=== PATIENT | female | born 1995 | race Caucasian/White ===

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

== ENCOUNTER 2017-03-13 13:29 | Emergency (ER) | payer MEDICAID ==
[~2017-03-13] VITALS: Ht 157.5 cm; Wt 58.0 kg
[2017-03-13 13:44] VITALS: BP 104/54
== END 2017-03-13 15:15 | disposition home or self-care (01) ==
LOC: ER 13:33
DX: H10.9 Unspecified conjunctivitis (principal); Z88.0 Allergy status to penicillin; Z98.890 Other specified postprocedural states
CPT/HCPCS: 99283

== ENCOUNTER 2017-03-21 21:45 | Emergency (ER) | payer SELFPAY ==
[~2017-03-21] VITALS: Ht 157.5 cm; Wt 60.0 kg
[2017-03-21 22:39] VITALS: BP 105/66
[2017-03-21] MEDS ORDERED: TETRACAINE 0.5% OPHTH DROPS 4ML OP ONE (23:15)
[2017-03-21] MEDS ORDERED: BALANCED SALT IRRIG SOLN 15ML IO ONE (23:15)
[2017-03-21] MEDS ORDERED: FLUORESCEIN SODIUM 1MG/STRIP OP ONE (23:15)
[2017-03-22 00:02] LABS: HCG SCREEN POSITIVE
[2017-03-22] MEDS ORDERED: GENTAMICIN 0.3% OPHTH DROPS 5ML OP ONE (00:15)
== END 2017-03-22 00:44 | disposition home or self-care (01) ==
LOC: ER 22:38
DX: H10.89 Other conjunctivitis (principal); Z88.0 Allergy status to penicillin
CPT/HCPCS: 84703; 99284

== ENCOUNTER 2017-04-05 14:02 | Observation (INO) | payer SELFPAY ==
[~2017-04-05] VITALS: Ht 157.5 cm; Wt 59.9 kg
== END 2017-04-05 18:27 | disposition home or self-care (01) ==
LOC: L&D 14:02
PROVIDERS: ADMIT Obstetrics & Gynecology; ATTEND Obstetrics & Gynecology
DX: O26.893 Other specified pregnancy related conditions, third trimester (principal); R10.30 Lower abdominal pain, unspecified; Z3A.37 37 weeks gestation of pregnancy
CPT/HCPCS: 99281; G0378

== ENCOUNTER 2017-04-16 18:38 | Observation (INO) | payer SELFPAY ==
[~2017-04-16] VITALS: Ht 157.5 cm; Wt 60.8 kg
[2017-04-16] MEDS: LACTATED RINGERS 1,000 ML IV SCH ×2 (19:38→20:39)
== END 2017-04-16 22:15 | disposition home or self-care (01) ==
LOC: L&D 18:38
PROVIDERS: ADMIT Obstetrics & Gynecology; ATTEND Obstetrics & Gynecology
DX: O62.9 Abnormality of forces of labor, unspecified (principal); Z3A.39 39 weeks gestation of pregnancy
CPT/HCPCS: 96360; 96361; 99281; G0378; J7120

== ENCOUNTER 2017-04-17 11:52 | Observation (INO) | payer MEDICAID ==
[~2017-04-17] VITALS: Ht 157.5 cm; Wt 59.9 kg
== END 2017-04-17 13:00 | disposition home or self-care (01) ==
LOC: L&D 11:52
PROVIDERS: ADMIT Obstetrics & Gynecology; ATTEND Obstetrics & Gynecology
DX: O62.9 Abnormality of forces of labor, unspecified (principal); Z3A.39 39 weeks gestation of pregnancy
CPT/HCPCS: 99281; G0378

== ENCOUNTER 2017-04-17 22:07 | Inpatient (IN) | payer MEDICAID ==
[~2017-04-17] VITALS: Ht 157.5 cm; Wt 60.8 kg
[2017-04-17] MEDS ORDERED: DEXT 5%/LR + PITOCIN 20UNITS/L 1,000 ML IV SCH (22:51)
[2017-04-17] MEDS ORDERED: METHYLERGONOVINE MALEATE 0.2 MG/ML IM PRN (23:00)
[2017-04-17] MEDS ORDERED: NALOXONE HCL 0.4 MG/ML 1ML VIAL IM PRN (23:00)
[2017-04-17] MEDS ORDERED: BUTORPHANOL TARTRATE 2 MG/ML VIAL IV PRN (23:00)
[2017-04-17] MEDS ORDERED: MISOPROSTOL 100MCG TABLET VG SCH (23:00)
[2017-04-17] MEDS ORDERED: LIDOCAINE HCL 1% 20ML VIAL (Pyxis) INJ INFIL SCH (23:00)
[2017-04-17] MEDS ORDERED: CARBOPROST TROMETHAMINE 250 MCG/ML AMPUL IM PRN (23:00)
[2017-04-17] MEDS: LACTATED RINGERS 1,000 ML IV SCH (23:21)
[2017-04-17 23:44] LABS: CLARITY URINE CLEAR (CLEAR); COLOR URINE YELLOW (YELLOW); KETONES URINE 1+ (NEGATIVE); LEUKOCYTE ESTERASE URINE 2+ (NEGATIVE); NITRITE URINE NEGATIVE (NEGATIVE); OCCULT BLOOD URINE TRACE (NEGATIVE); PROTEIN URINE NEGATIVE (NEGATIVE); SPECIFIC GRAVITY URINE 1.009 (1.005-1.030); UROBILINOGEN URINE 0.2 E.U./dL (0.2-1.0)
[2017-04-17] MEDS: CLINDAMYCIN 900 MG in DEXTROSE 5% WATER 50 ML IV SCH (23:44)
[2017-04-17 23:53] LABS: BASOPHILS % 0.2 % (0.0-2.0); EOSINOPHILS % 0.1 % (0.0-5.0); HEMOGLOBIN. 11.9 g/dL (12.0-16.0); LYMPHOCYTES % 11.5 % (20.0-50.0); MEAN CORPUSCULAR HEMOGLOBIN 31.4 pg (28.0-32.0); MEAN CORPUSCULAR VOLUME 92.7 fL (81.0-99.0); MEAN PLATELET VOLUME 8.9 fl (7.4-10.4); MONOCYTES % 5.9 % (2.0-8.0); NEUTROPHILS % 82.3 % (40.0-76.0); PLATELET 177 x1000/uL (130-400); RED BLOOD CELL COUNT 3.78 mill/uL (4.2-5.4); RED CELL DISTRIBUTION WIDTH 13.1 % (11.6-14.6)
[2017-04-17 23:59] LABS: INR 0.9; PARTIAL THROMBOPLASTIN TIME 25.1 sec (23.4-31.0); PROTHROMBIN TIME 9.8 sec (9.4-11.6)
[2017-04-18 00:01] LABS: *AMPHETAMINES SCREEN URINE NEGATIVE (NEGATIVE); *BARBITURATES SCREEN URINE NEGATIVE (NEGATIVE); *BENZODIAZEPINES SCREEN URINE NEGATIVE (NEGATIVE); *COCAINE SCREEN URINE NEGATIVE (NEGATIVE); CANNABINOID URINE SCREEN NEGATIVE (NEGATIVE); METHADONE URINE SCREEN NEGATIVE (NEGATIVE); OPIATES URINE SCREEN NEGATIVE (NEGATIVE); PHENCYCLIDINE URINE SCREEN NEGATIVE (NEGATIVE)
[2017-04-18] MEDS: LACTATED RINGERS 1,000 ML IV SCH (00:48)
[2017-04-18] MEDS ORDERED: BUPIVACAINE HCL/PF 0.25% (2.5MG/ML) 10ML ONE (01:59)
[2017-04-18] MEDS ORDERED: BUPIVACAINE HCL/NS/PF EPIDURAL 100 ML EP ONE ×2 (01:59→10:51)
[2017-04-18] MEDS ORDERED: FENTANYL CITRATE/PF 50MCG/ML 5ML VIAL ONE (02:00)
[2017-04-18] MEDS ORDERED: BUPIVACAINE HCL/NS/PF EPIDURAL 100 ML EP SCH (02:30)
[2017-04-18] MEDS: CLINDAMYCIN 900 MG in DEXTROSE 5% WATER 50 ML IV SCH ×2 (07:50→15:45)
[2017-04-18] MEDS ORDERED: LIDOCAINE HCL/PF 2% 20MG/ML 5 ML/VIAL ONE ×2 (11:03→12:52)
[2017-04-18 13:35] LABS: RUBELLA IGG 32.2 IU/mL (4.99-10)
[2017-04-18 13:40] LABS: HEPATITIS B SURFACE ANTIGEN NEGATIVE
[2017-04-18] MEDS ORDERED: KETAMINE HCL 50 MG/ML 10ML ONE (18:17)
[2017-04-18] MEDS ORDERED: OXYTOCIN 10 UNITS/ML 1ML ONE (18:35)
[2017-04-18] MEDS ORDERED: ONDANSETRON HCL 4MG/2ML VIAL ONE (18:52)
[2017-04-18] MEDS ORDERED: DEXAMETHASONE 4MG/ML 1ML VIAL ONE (18:52)
[2017-04-18 19:00] LABS: BG BASE EXCESS -6.5 mmol/L (-2.0-2.0); BG FRACTION INSPIRED OXYGEN 21; BG HCO3 ACT 20.9 mmol/L (22.0-26.0); BG PCO2 48.6 mmHg (35.0-45.0); BG PH 7.252 (7.350-7.450); BG PO2 < 30.3 mmHg (75.0-100.0); BG SAMPLE SITE CORD; BG VENT MODE ROOM AIR
[2017-04-18 19:03] LABS: BG BASE EXCESS -7.4 mmol/L (-2.0-2.0); BG FRACTION INSPIRED OXYGEN 21; BG HCO3 ACT 20.8 mmol/L (22.0-26.0); BG PCO2 52.4 mmHg (35.0-45.0); BG PH 7.217 (7.350-7.450); BG PO2 < 30.3 mmHg (75.0-100.0); BG SAMPLE SITE CORD; BG VENT MODE ROOM AIR
[2017-04-18] MEDS ORDERED: DEXT 5%/LR + PITOCIN 20UNITS/L 1,000 ML IV SCH (19:12)
[2017-04-18] MEDS ORDERED: HYDROCODONE/ACETAMINOPHEN 5/325MG TABLET PO PRN ×2 (19:15)
[2017-04-18] MEDS ORDERED: LANOLIN OINT 0.25 GM TUBE TOP PRN (19:15)
[2017-04-18] MEDS ORDERED: RHO(D) IMMUNE GLOBULIN 300 MCG/SYR IM PRN (19:15)
[2017-04-18] MEDS ORDERED: ONDANSETRON HCL 4MG/2ML VIAL IV PRN (19:15)
[2017-04-18] MEDS ORDERED: IBUPROFEN 400MG TABLET PO PRN (19:15)
[2017-04-18] MEDS ORDERED: MORPHINE SULFATE/PF 1MG/ML 10ML AMP ONE (19:20)
[2017-04-18] MEDS ORDERED: DIPHENHYDRAMINE 25MG CAPSULE PO PRN (21:00)
[2017-04-18] MEDS ORDERED: DOCUSATE SODIUM 100MG CAPSULE PO SCH (21:00)
[2017-04-18 23:50] VITALS: BP 101/63
[2017-04-19] MEDS ORDERED: KETOROLAC 30MG/ML VIAL IV PRN (07:30)
[2017-04-19 07:34] VITALS: BP 105/65
[2017-04-19 08:00] VITALS: BP 101/59
[2017-04-19] MEDS ORDERED: PRENATAL VIT/FE FUMARATE/FA TABLET PO SCH (09:00)
[2017-04-19] MEDS: IBUPROFEN 800MG TABLET PO PRN (09:22)
[2017-04-19] MEDS: SIMETHICONE 80MG TABLET CHEW PO SCH ×2 (09:22→21:38)
[2017-04-19 10:26] LABS: BASOPHILS % 0.1 % (0.0-2.0); LYMPHOCYTES % 7.8 % (20.0-50.0); MEAN CORPUSCULAR HEMOGLOBIN 32.4 pg (28.0-32.0); MEAN PLATELET VOLUME 8.2 fl (7.4-10.4); MONOCYTES % 8.1 % (2.0-8.0); PLATELET 143 x1000/uL (130-400); RED BLOOD CELL COUNT 3.08 mill/uL (4.2-5.4); RED CELL DISTRIBUTION WIDTH 13.4 % (11.6-14.6)
[2017-04-19 16:54] VITALS: BP 96/51
[2017-04-19 20:00] VITALS: BP 99/52
[2017-04-20 00:10] VITALS: BP 107/68
[2017-04-20] MEDS: IBUPROFEN 800MG TABLET PO PRN (03:10)
[2017-04-20 04:00] VITALS: BP 117/66
[2017-04-20 08:00] VITALS: BP 100/58
== END 2017-04-20 18:00 | disposition home or self-care (01) | DRG 540 ==
LOC: L&D 22:07 → OBSVTOIN 22:07 → L&D 04-18 11:47 → 7EST PP/OB 04-18 22:42
PROVIDERS: ADMIT Obstetrics & Gynecology; ATTEND Obstetrics & Gynecology
PROC: 10D00Z1 Extraction of Products of Conception, Low, Open Approach (ICD-10-PCS; principal; 2017-04-18 17:52)
DX: O62.2 Other uterine inertia (principal); D62 Acute posthemorrhagic anemia; O90.81 Anemia of the puerperium; Z37.0 Single live birth; Z3A.39 39 weeks gestation of pregnancy; Z88.0 Allergy status to penicillin
CPT/HCPCS: 36415; 36600; 80305; 81001; 82805; 85025; 85610; 85730; 86592; 86703; 86762; 86850; 86900; 87340; 88307; 99281; G0378; J0595; J1100; J2274; J2310; J2405; J2590; J3010; J3490; J7060; J7120; A4315

== ENCOUNTER 2017-05-31 20:43 | Emergency (ER) | payer MEDICAID ==
[~2017-05-31] VITALS: Ht 157.5 cm; Wt 51.0 kg
[2017-05-31 21:42] LABS: CLARITY URINE CLOUDY (CLEAR); COLOR URINE YELLOW (YELLOW); KETONES URINE TRACE (NEGATIVE); LEUKOCYTE ESTERASE URINE NEGATIVE (NEGATIVE); NITRITE URINE NEGATIVE (NEGATIVE); OCCULT BLOOD URINE NEGATIVE (NEGATIVE); PH URINE 7.5 (4.5-8.0); PROTEIN URINE NEGATIVE (NEGATIVE); SPECIFIC GRAVITY URINE 1.016 (1.005-1.030); UROBILINOGEN URINE 0.2 E.U./dL (0.2-1.0)
[2017-05-31] MEDS ORDERED: SODIUM CHLORIDE 0.9% 1,000 ML IV ONE (22:39)
[2017-05-31] MEDS ORDERED: KETOROLAC 30MG/ML VIAL IV STA (22:39)
[2017-05-31 23:14] LABS: BASOPHILS % 1.4 % (0.0-2.0); EOSINOPHILS % 2.3 % (0.0-5.0); HEMATOCRIT. 33.5 % (36.0-48.0); HEMOGLOBIN. 11.2 g/dL (12.0-16.0); LYMPHOCYTES % 37.9 % (20.0-50.0); MEAN CORPUSCULAR HEMOGLOBIN 29.7 pg (28.0-32.0); MEAN CORPUSCULAR VOLUME 88.6 fL (81.0-99.0); MEAN PLATELET VOLUME 7.9 fl (7.4-10.4); MONOCYTES % 10.1 % (2.0-8.0); NEUTROPHILS % 48.3 % (40.0-76.0); PLATELET 264 x1000/uL (130-400); RED BLOOD CELL COUNT 3.78 mill/uL (4.2-5.4); RED CELL DISTRIBUTION WIDTH 15.5 % (11.6-14.6)
[2017-05-31 23:32] LABS: CHLORIDE 104 mEq/L (98-107)
[2017-06-01 02:40] VITALS: BP 117/79
[2017-06-01] MEDS ORDERED: IOHEXOL-300 100 ML BOTTLE ONE (02:58)
== END 2017-06-01 03:57 | disposition home or self-care (01) ==
LOC: ER 21:22
DX: L76.34 Postprocedural seroma of skin and subcutaneous tissue following other procedure (principal); N39.0 Urinary tract infection, site not specified; K76.89 Other specified diseases of liver; N83.201 Unspecified ovarian cyst, right side; N83.202 Unspecified ovarian cyst, left side; Z88.0 Allergy status to penicillin; Z98.890 Other specified postprocedural states; Y83.8 Other surgical procedures as the cause of abnormal reaction of the patient, or of later complication, without mention of misadventure at the time of the procedure; Y92.018 Other place in single-family (private) house as the place of occurrence of the external cause
CPT/HCPCS: 36415; 74177; 80053; 81001; 81025; 83690; 85025; 96361; 96374; 99285; J1885; J7030; Q9967

== ENCOUNTER 2018-07-07 02:09 | Emergency (ER) | payer MEDICAID ==
[~2018-07-07] VITALS: Ht 154.9 cm; Wt 53.2 kg
[2018-07-07 05:19] VITALS: BP 134/60
== END 2018-07-07 08:36 | disposition left against medical advice (07) ==
LOC: ER 02:09
DX: R10.9 Unspecified abdominal pain (principal); Z53.21 Procedure and treatment not carried out due to patient leaving prior to being seen by health care provider

== ENCOUNTER 2020-04-01 01:07 | Emergency (ER) | payer MEDICAID ==
[~2020-04-01] VITALS: Ht 157.5 cm; Wt 65.0 kg
[2020-04-01 01:13] VITALS: BP 120/63
[2020-04-01] MEDS ORDERED: ONDANSETRON 4MG ODT PO ONE (01:45)
[2020-04-01] MEDS ORDERED: ACETAMINOPHEN 325MG TABLET PO ONE (01:45)
[2020-04-01 02:04] LABS: CHLORIDE 109 mEq/L (98-107)
[2020-04-01 02:27] LABS: CLARITY URINE CLEAR (CLEAR); COLOR URINE YELLOW (YELLOW); KETONES URINE 3+ (NEGATIVE); LEUKOCYTE ESTERASE URINE 1+ (NEGATIVE); NITRITE URINE NEGATIVE (NEGATIVE); OCCULT BLOOD URINE TRACE (NEGATIVE); PROTEIN URINE NEGATIVE (NEGATIVE); SPECIFIC GRAVITY URINE 1.018 (1.005-1.030); UROBILINOGEN URINE 0.2 E.U./dL (0.2-1.0)
[2020-04-01 02:28] LABS: B-HCG QUANTITATIVE 95107 mIU/mL (<3)
[2020-04-01 02:33] LABS: BASOPHILS % 0.6 % (0.0-2.0); EOSINOPHILS % 2.8 % (0.0-5.0); HEMATOCRIT. 35.5 % (36.0-48.0); HEMOGLOBIN. 12.7 g/dL (12.0-16.0); LYMPHOCYTES % 17.3 % (20.0-50.0); MEAN CORPUSCULAR HEMOGLOBIN 33.7 pg (28.0-32.0); MEAN CORPUSCULAR VOLUME 94.1 fL (81.0-99.0); MEAN PLATELET VOLUME 9.3 fl (7.4-10.4); MONOCYTES % 5.2 % (2.0-8.0); NEUTROPHILS % 74.1 % (40.0-76.0); PLATELET 187 x1000/uL (130-400); RED BLOOD CELL COUNT 3.77 mill/uL (4.2-5.4); RED CELL DISTRIBUTION WIDTH 11.5 % (11.6-14.6)
[2020-04-01] MEDS ORDERED: MORPHINE SULFATE 10 MG/ML CPJ IM ONE (04:30)
== END 2020-04-01 04:33 | disposition home or self-care (01) ==
LOC: ER 01:07
DX: O23.01 Infections of kidney in pregnancy, first trimester (principal); Z3A.11 11 weeks gestation of pregnancy
CPT/HCPCS: 36415; 76705; 76801; 80053; 81003; 81025; 83690; 84702; 85025; 96372; 99285; J2270; Q0162

== ENCOUNTER 2020-04-26 21:50 | Emergency (ER) | payer MEDICAID ==
[~2020-04-26] VITALS: Ht 157.5 cm; Wt 58.0 kg
[2020-04-26] MEDS ORDERED: ACETAMINOPHEN 325MG TABLET PO ONE (23:00)
[2020-04-26] MEDS ORDERED: SODIUM CHLORIDE 0.9% 1,000 ML IV ONE (23:00)
[2020-04-26] MEDS ORDERED: ONDANSETRON 4MG ODT PO ONE (23:15)
[2020-04-26 23:36] LABS: HEMATOCRIT. 27.9 % (36.0-48.0); MEAN CORPUSCULAR HEMOGLOBIN 33.2 pg (28.0-32.0); PLATELET 169 x1000/uL (130-400); RED CELL DISTRIBUTION WIDTH 12.1 % (11.6-14.6)
[2020-04-26 23:42] LABS: CHLORIDE 109 mEq/L (98-107)
[2020-04-26] MEDS ORDERED: POTASSIUM CHLORIDE 20MEQ TABLET SR PO ONE (23:54)
[2020-04-27 00:05] LABS: B-HCG QUANTITATIVE 36431 mIU/mL (<3)
[2020-04-27 00:07] LABS: ATYPICAL LYMPHOCYTES 1; PLATELET ESTIMATE NORMAL
[2020-04-27 01:01] LABS: CLARITY URINE CLEAR (CLEAR); COLOR URINE YELLOW (YELLOW); KETONES URINE 2+ (NEGATIVE); LEUKOCYTE ESTERASE URINE 2+ (NEGATIVE); NITRITE URINE NEGATIVE (NEGATIVE); OCCULT BLOOD URINE TRACE (NEGATIVE); PROTEIN URINE NEGATIVE (NEGATIVE); SPECIFIC GRAVITY URINE 1.005 (1.005-1.030); UROBILINOGEN URINE 0.2 E.U./dL (0.2-1.0)
[2020-04-27] MEDS ORDERED: CEPHALEXIN 250MG CAPSULE PO NR (02:00)
[2020-04-27 02:24] VITALS: BP 104/46
== END 2020-04-27 02:34 | disposition home or self-care (01) ==
LOC: ER 21:50
DX: O23.41 Unspecified infection of urinary tract in pregnancy, first trimester (principal); Z3A.12 12 weeks gestation of pregnancy; Z20.822 Contact with and (suspected) exposure to COVID-19; R00.0 Tachycardia, unspecified; R51.9 Headache, unspecified
CPT/HCPCS: 36415; 80053; 81003; 83605; 84702; 85025; 87040; 87077; 87086; 87186; 87426; 93005; 96360; 99284; J7030; Q0162